=== PATIENT | female | born 1940 | race Caucasian/White ===

== ENCOUNTER 2017-01-14 16:34 | Inpatient (IN) | payer MEDICARE ==
[~2017-01-14] VITALS: Ht 154.9 cm; Wt 68.3 kg
[2017-01-14 17:56] VITALS: BP 124/71
[2017-01-14] MEDS ORDERED: PROPOFOL 10 MG/ML, 20ML ONE (18:29)
[2017-01-14] MEDS ORDERED: ROCURONIUM 10 MG/ML,10ML ONE (18:29)
[2017-01-14] MEDS ORDERED: MIDAZOLAM 1 MG/ML, 2ML ONE (18:30)
[2017-01-14] MEDS ORDERED: SUCCINYLCHOLINE 20 MG/ML, 10ML ONE (18:30)
[2017-01-14] MEDS ORDERED: FENTANYL PF 100 MCG/2ML ONE ×2 (18:31→19:36)
[2017-01-14] MEDS ORDERED: ONDANSETRON 2MG/ML, 2ML ONE (18:57)
[2017-01-14] MEDS ORDERED: CEFAZOLIN 1,000 MG ONE ×2 (18:57)
[2017-01-14] MEDS ORDERED: DEXAMETHASONE 4 MG/ML, 1ML ONE (18:57)
[2017-01-14] MEDS ORDERED: KETOROLAC 30 MG/1 ML ONE (18:59)
[2017-01-14] MEDS ORDERED: hydrALAzine 20 MG/ML, 1ML IV PRN (19:00)
[2017-01-14] MEDS ORDERED: KETOROLAC 30 MG/1 ML IV PRN (19:00)
[2017-01-14] MEDS ORDERED: EPHEDRINE 50 MG/ML, 1ML IVPush PRN (19:00)
[2017-01-14] MEDS ORDERED: MIDAZOLAM 1 MG/ML, 2ML IV PRN (19:00)
[2017-01-14] MEDS ORDERED: ONDANSETRON 2MG/ML, 2ML IVPush PRN (19:00)
[2017-01-14] MEDS ORDERED: METOPROLOL 1 MG/ML, 5ML IV PRN (19:00)
[2017-01-14] MEDS ORDERED: ALBUTEROL SULFATE 2.5 MG/3 ML NPPB PRN (19:00)
[2017-01-14] MEDS ORDERED: LABETALOL 5MG/ML, 20ML IV PRN (19:00)
[2017-01-14] MEDS ORDERED: MEPERIDINE/PF 25MG/0.5ML IVPush PRN (19:00)
[2017-01-14] MEDS ORDERED: OXYcodone 5 MG/5 ML ORAL.SOL UDC PO PRN (19:00)
[2017-01-14] MEDS ORDERED: METOCLOPRAMIDE 5 MG/ML, 2ML IV PRN (19:00)
[2017-01-14] MEDS ORDERED: ACETAMINOPHEN 325 MG TABLET PO PRN (19:00)
[2017-01-14] MEDS ORDERED: HYDROcodone/APAP 7.5-325MG/15ML UDC PO PRN (19:00)
[2017-01-14] MEDS: FENTANYL PF 100 MCG/2ML IV PRN ×4 (19:22→20:00)
[2017-01-14] MEDS ORDERED: ACETAMINOPHEN 650 MG/20.3 ML UDC ONE (19:36)
[2017-01-14] MEDS ORDERED: OXYcodone 5 MG/5 ML ORAL.SOL UDC ONE (19:36)
[2017-01-14] MEDS ORDERED: HYDROmorphone 1 MG/ML, 1ML ONE (19:40)
[2017-01-14] MEDS: HYDROmorphone 1 MG/ML, 1ML IV PRN ×2 (19:41→20:00)
[2017-01-15 00:30] VITALS: BP 104/61
[2017-01-15] MEDS ORDERED: DIPHENHYDRAMINE 25 MG CAPSULE PO PRN (00:30)
[2017-01-15] MEDS ORDERED: ONDANSETRON 2MG/ML, 2ML IVPush PRN (00:30)
[2017-01-15] MEDS ORDERED: ONDANSETRON ODT 4 MG PO PRN ×2 (00:30→16:30)
[2017-01-15] MEDS ORDERED: KETO10TA PO (03:06)
[2017-01-15] MEDS ORDERED: POLY17PO5 PO (03:08)
[2017-01-15 03:39] VITALS: BP 100/71
[2017-01-15] MEDS: KETOROLAC 10MG TABLET PO PRN ×2 (07:06→16:46)
[2017-01-15 07:25] VITALS: BP 112/68
[2017-01-15] MEDS ORDERED: HYDROmorphone 1 MG/ML, 1ML IV PRN (08:00)
[2017-01-15] MEDS: TAMSULOSIN 0.4 MG CAP.ER.24H PO SCH ×2 (09:00→09:30)
[2017-01-15] MEDS: LACTATED RINGERS 1,000 ML IV SCH ×2 (11:51)
[2017-01-15 12:55] VITALS: BP 110/70
[2017-01-15] MEDS ORDERED: HYDROcodone/APAP 5/325 TABLET PO PRN (16:30)
[2017-01-15 19:09] VITALS: BP 107/52
[2017-01-15] MEDS: POLYETHYLENE GLYCOL 17 GM PACKET PO SCH (20:14)
[2017-01-16 03:17] VITALS: BP 100/53
[2017-01-16 06:55] VITALS: BP 121/67
[2017-01-16] MEDS: POLYETHYLENE GLYCOL 17 GM PACKET PO SCH (10:54)
[2017-01-16] MEDS: TAMSULOSIN 0.4 MG CAP.ER.24H PO SCH (10:54)
[2017-01-16 10:55] VITALS: BP 147/77
== END 2017-01-16 11:27 | disposition home or self-care (01) | DRG 670 ==
LOC: 4NOR 16:35
PROVIDERS: ADMIT Urology; ATTEND Urology
PROC: 0TC68ZZ Extirpation of Matter from Right Ureter, Via Natural or Artificial Opening Endoscopic (ICD-10-PCS; principal; 2017-01-14 18:00)
DX: N20.1 Calculus of ureter (principal)
CPT/HCPCS: 82360; 88300; J0690; J1100; J1170; J1885; J2250; J2405; J2704; J3010; C1758; C1769; J0330; J7120